=== PATIENT | male | born 1985 | race Caucasian/White ===

== ENCOUNTER 2016-11-06 00:46 | Emergency (ER) | payer SELFPAY ==
[~2016-11-06] VITALS: Ht 170.2 cm; Wt 142.9 kg
--- NOTE | 2016-11-06 00:48 | NUR ---
Placed in room 05 . Placed on cafeteria monitor, blood pressure machine and pulse oximeter. To gown for exam. Side rails up Report given to EL He.
--- NOTE | 2016-11-06 00:50 | NUR ---
ER at bedside examining patient.
--- NOTE | 2016-11-06 00:52 | NUR ---
Pt brought in by BLS transport in stable condition. Pt c/o sudden onset of left lower back pain 05/18. Pt denies any trauma or injury. Pt stated that he was sitting down and went to get up and felt severe back pain. Pt stated that he has had back spasms before but nothing like what he experienced this evening. Pt stated he medicated w/ 1200mg of Ibuprofen. -sob -chest pain. No acute distress noted at this time, will continue to monitor
[2016-11-06 00:54] VITALS: BP 180/120; PULSE 92; RESP 16; TEMP 98; O2SAT 98
[2016-11-06] MEDS ORDERED: KETOROLAC TROMETHAMINE 60 MG/2 ML VIAL IM ONE (01:00)
[2016-11-06 01:44] LABS: BILIRUBIN,URINE NEGATIVE (NEGATIVE); CLARITY/URINE CLEAR (CLEAR); COLOR,URINE YELLOW (YELLOW); GLUCOSE,URINE 3+ (NEGATIVE); KETONES,URINE NEGATIVE (NEGATIVE); LEUKOCYTE ESTERASE ,URINE NEGATIVE (NEGATIVE); NITRITE, URINE NEGATIVE (NEGATIVE); PH,URINE 5.5 (5.0-8.0); PROTEIN URINE 2+ (NEGATIVE); UROBILINOGEN,URINE 0.2 (0.2-1.0)
[2016-11-06 01:45] LABS: BLOOD, URINE TRACE (NEGATIVE)
[2016-11-06 01:50] LABS: BACTERIA,URINE FEW /HPF (None Seen); RBC,URINE 0-3 /HPF (0-3); WBC,URINE 0-3 /HPF (0-3)
[2016-11-06 01:51] LABS: MUCUS,URINE None Seen /LPF (None Seen)
[2016-11-06 02:07] VITALS: BP 166/98; PULSE 87; RESP 16; TEMP 98; O2SAT 98
--- NOTE | 2016-11-06 02:07 | NUR ---
Patient given written and verbal discharge instructions and verbalizes understanding. ER MD discussed with patient the results and treatment provided. Patient in stable condition. ID arm band removed. Rx of norco and ibuprofen given. Patient educated on pain management and to follow up with PMD. Pain Scale 0/10. Opportunity for questions provided and answered.
== END 2016-11-06 02:07 | disposition home or self-care (01) ==
LOC: SED 00:46
DX: M54.5 Low back pain (principal); E66.01 Morbid (severe) obesity due to excess calories; Z68.42 Body mass index [BMI] 45.0-49.9, adult
CPT/HCPCS: 81000; 96372; 99283; J1885